=== PATIENT | female | born 1935 | race Caucasian/White ===

== ENCOUNTER 2017-06-04 14:10 | Inpatient (IN) | payer MEDICARE, BC ==
[~2017-06-04] VITALS: Ht 170.2 cm; Wt 72.4 kg
[~2017-06-04 14:10] MED LIST: ALLO100T15 PO; ALPR-623 PO; APIX2.5T PO; ATOR20TA PO; CARV-50 PO; CHOL200016 PO; CLON1PAT15 TP; DOXE10CA2 PO; ENOX80SY7 SQ; EPOE200015 SQ; FURO40TA4 PO; GABA-532 PO; HYDR-4069 PO; HYDR-565 PO; INSU100I25 SQ; LEVO100T PO; METO10TA8 PO; NIT5P TD; NITR0.4T SL; OMEP40CA37 PO; POTA-82 PO; PREVCR VG; VITC500T PO
[2017-06-04] MEDS ORDERED: aspirin 81mg tab.chew PO ONE (17:25)
[2017-06-04] MEDS ORDERED: nitroGLYCERIN 0.4mg SUBLingual tab SL PRN ×2 (17:25→21:40)
[2017-06-04 17:38] LABS: BASOPHILS % (AUTO) 0.3 % (0-1); EOSINOPHILS # (AUTO) 0.1 X10'3 (0-0.9); EOSINOPHILS % (AUTO) 1.6 % (0-6); HEMATOCRIT 40.4 % (35.0-45.0); HEMOGLOBIN 13.1 g/dl (12.0-16.0); LYMPHOCYTES # (AUTO) 1.2 X10'3 (1.1-4.8); LYMPHOCYTES % (AUTO) 14.5 % (21-51); MEAN CORPUSCULAR HEMOGLOBIN 30.4 PG (27.0-31.0); MEAN CORPUSCULAR HGB CONC 32.5 % (33.0-36.5); MEAN CORPUSCULAR VOLUME 93.6 FL (78-98); MEAN PLATELET VOLUME 7.1 FL (7.4-10.4); MONOCYTES # (AUTO) 0.6 X10'3 (0-0.9); MONOCYTES % (AUTO) 7.2 % (2-12); NEUTROPHILS # (AUTO) 6.5 X10'3 (1.8-7.7); NEUTROPHILS % (AUTO) 76.4 % (42-75); PLATELET COUNT 208 X10'3 (140-440); RED BLOOD COUNT 4.32 X10'6 (4.20-5.60); RED CELL DISTRIBUTION WIDTH 18.5 % (11.5-14.5); WHITE BLOOD COUNT 8.5 X10'3 (4.5-11.0)
[2017-06-04 18:07] LABS: ALANINE AMINOTRANSFERASE 19 U/L (12-78); ALBUMIN 3.3 G/DL (3.4-5.0); ALBUMIN/GLOBULIN RATIO 0.6 (1.1-1.5); ALKALINE PHOSPHATASE 274 IU/L (46-116); ANION GAP 12 (8-16); ASPARTATE AMINO TRANSFERASE 27 U/L (10-37); BILIRUBIN,TOTAL 1.4 MG/DL (0.1-1.0); BLOOD UREA NITROGEN 54 MG/DL (7-18); BUN/CREATININE RATIO 11.4 (6.6-38.0); CALCIUM 10.8 MG/DL (8.5-10.1); CHLORIDE 96 MMOL/L (99-107); CREATININE 4.73 MG/DL (0.40-0.90); GLUCOSE 151 MG/DL (70-104); MAGNESIUM 2.1 MG/DL (1.5-2.4); POTASSIUM 4.8 MMOL/L (3.5-5.1); SODIUM 137 MMOL/L (135-145); TOTAL CARBON DIOXIDE 28.6 MMOL/L (24-32); TOTAL PROTEIN 8.5 G/DL (6.4-8.2); eGFR 9 ML/MIN
[2017-06-04] MEDS ORDERED: morphine 4 MG/ML inj SYRINge IV STA (18:13)
[2017-06-04] MEDS ORDERED: ondansetron/PF 4mg/2ml inj IV ONE (18:45)
[2017-06-04] MEDS ORDERED: magnesium hydroxide 30ml (MOM) UD suspension PO PRN (19:45)
[2017-06-04] MEDS ORDERED: mag hydrox/Alum hydrox/simeth 30ml oral suspension PO PRN (19:45)
[2017-06-04] MEDS ORDERED: ondansetron/PF 4mg/2ml inj IV PRN (19:45)
[2017-06-04] MEDS ORDERED: acetaminophen 325mg tablet PO PRN ×2 (19:45)
[2017-06-04] MEDS: carVEDilol 12.5mg tablet PO SCH (20:36)
[2017-06-04] MEDS ORDERED: CHOLECALCIFEROL 50000 UNIT PO SCH (21:40)
[2017-06-04] MEDS ORDERED: cloNIDine 0.2 MG/24 HR patch (7 day patch) TD SCH (21:40)
[2017-06-04] MEDS ORDERED: ALPRAZolam 0.25mg tablet PO PRN (21:40)
[2017-06-04] MEDS ORDERED: HYDROcodone/acetaminophen 10/325mg tab PO PRN (21:40)
[2017-06-04 22:00] VITALS: BP 168/82
[2017-06-04] MEDS: doxepin 10mg capsule PO SCH (22:45)
[2017-06-04] MEDS: HYDROcodone/acetaminophen 5mg/325mg tablet PO PRN (22:47)
[2017-06-05] VITALS (13 sets, daily range): BP systolic 109–144; BP diastolic 45–76
[2017-06-05] MEDS ORDERED: furosemide 10 MG/1 ML 10ml inj IV SCH
[2017-06-05] MEDS ORDERED: dextrose 50%-water 50ml dispensing syringe IV PRN ×2 (00:05)
[2017-06-05] MEDS ORDERED: dextrose ORAL solution 15 GM/59 ML bottle PO PRN (00:05)
[2017-06-05] MEDS ORDERED: MESSAGE TO PHARMACY PO ONE (00:05)
[2017-06-05] MEDS ORDERED: insulin Lispro (HumaLOG) vial - multi-dose SQ SCH (00:05)
[2017-06-05] MEDS ORDERED: glucagon, human recombinant 1mg kit SUBCUT PRN (00:05)
[2017-06-05 05:59] LABS: BASOPHILS % (AUTO) 0.5 % (0-1); EOSINOPHILS # (AUTO) 0.1 X10'3 (0-0.9); HEMATOCRIT 38.9 % (35.0-45.0); HEMOGLOBIN 12.8 g/dl (12.0-16.0); LYMPHOCYTES # (AUTO) 1.3 X10'3 (1.1-4.8); LYMPHOCYTES % (AUTO) 16.8 % (21-51); MEAN CORPUSCULAR HEMOGLOBIN 30.6 PG (27.0-31.0); MEAN CORPUSCULAR HGB CONC 32.8 % (33.0-36.5); MEAN CORPUSCULAR VOLUME 93.3 FL (78-98); MEAN PLATELET VOLUME 7.5 FL (7.4-10.4); MONOCYTES # (AUTO) 0.8 X10'3 (0-0.9); MONOCYTES % (AUTO) 10.8 % (2-12); NEUTROPHILS # (AUTO) 5.5 X10'3 (1.8-7.7); NEUTROPHILS % (AUTO) 70.9 % (42-75); PLATELET COUNT 187 X10'3 (140-440); RED BLOOD COUNT 4.17 X10'6 (4.20-5.60); RED CELL DISTRIBUTION WIDTH 18.3 % (11.5-14.5); WHITE BLOOD COUNT 7.8 X10'3 (4.5-11.0)
[2017-06-05 06:09] LABS: HEMOGLOBIN A1C 5.7 % (4.5-6.2)
[2017-06-05 06:10] LABS: INR 1.3 INR; PARTIAL THROMBOPLASTIN TIME 30 SECONDS (22-32); PROTHROMBIN TIME 13.5 SECONDS (9.0-12.0)
[2017-06-05 06:17] LABS: ALANINE AMINOTRANSFERASE 18 U/L (12-78); ALBUMIN/GLOBULIN RATIO 0.6 (1.1-1.5); ALKALINE PHOSPHATASE 233 IU/L (46-116); ANION GAP 12 (8-16); ASPARTATE AMINO TRANSFERASE 26 U/L (10-37); BILIRUBIN,TOTAL 1.5 MG/DL (0.1-1.0); BLOOD UREA NITROGEN 61 MG/DL (7-18); BUN/CREATININE RATIO 12.7 (6.6-38.0); CALCIUM 10.3 MG/DL (8.5-10.1); CHLORIDE 97 MMOL/L (99-107); CREATININE 4.82 MG/DL (0.40-0.90); GLUCOSE 135 MG/DL (70-104); MAGNESIUM 2.2 MG/DL (1.5-2.4); PHOSPHORUS 5.9 MG/DL (2.3-4.5); SODIUM 136 MMOL/L (135-145); TOTAL CARBON DIOXIDE 27.5 MMOL/L (24-32); TOTAL PROTEIN 7.8 G/DL (6.4-8.2); eGFR 9 ML/MIN
[2017-06-05] MEDS: HYDROcodone/acetaminophen 5mg/325mg tablet PO PRN (07:17)
[2017-06-05] MEDS ORDERED: carVEDilol 12.5mg tablet PO SCH (08:00)
[2017-06-05] MEDS ORDERED: potassium Cl 20 mEq SR tablet PO SCH (08:00)
[2017-06-05] MEDS ORDERED: heparin 1,000unit/ml 10ml vial 10 ML IV ONE (08:00)
[2017-06-05] MEDS ORDERED: nitroGLYCERIN 0.2mg/hour patch TD SCH (08:00)
[2017-06-05] MEDS ORDERED: METOLAZONE 5 MG PO SCH (08:00)
[2017-06-05] MEDS ORDERED: non-formulary drug (Potassium Chloride 1 TAB) PO SCH (08:00)
[2017-06-05] MEDS ORDERED: non-formulary drug (Omeprazole (Prilosec) 1 CAP) PO SCH (08:00)
[2017-06-05] MEDS ORDERED: enoxaparin 80mg/0.8ml syringe SUBCUT SCH (08:00)
[2017-06-05] MEDS ORDERED: LIDOcaine 1% (10mg/ml) 2ml vial SQ ONE (08:00)
[2017-06-05] MEDS: hydrALAZINE 25 MG tablet PO SCH ×3 (08:00→21:00)
[2017-06-05] MEDS ORDERED: isosorbide mononitrate 30mg tab.SR.24H PO SCH (08:00)
[2017-06-05] MEDS: lisinopril 20mg tablet PO SCH (08:00)
[2017-06-05] MEDS: carVEDilol 12.5mg tablet PO SCH ×2 (08:00→20:31)
[2017-06-05] MEDS: apixaban 2.5mg tablet PO SCH ×2 (08:21→20:32)
[2017-06-05] MEDS: pantoprazole 40mg Tablet.DR PO SCH (08:21)
[2017-06-05] MEDS: levoTHYROXINE 100mcg tablet PO SCH (08:21)
[2017-06-05] MEDS: metolazone 2.5mg tablet PO SCH ×2 (08:22→20:33)
[2017-06-05] MEDS: ascorbic acid 500mg tablet PO SCH ×2 (08:22→20:31)
[2017-06-05] MEDS: insulin glargine (Lantus) pen - multi-dose SQ SCH ×2 (08:43→21:00)
[2017-06-05] MEDS: furosemide 40mg tablet PO SCH ×3 (08:54→22:24)
[2017-06-05] MEDS ORDERED: aminophylline inj. 0 ML IV ONE (15:03)
[2017-06-05] MEDS ORDERED: regadenoson 0.4mg/5ml syringe IV ONE ×2 (15:03→15:40)
[2017-06-05] MEDS ORDERED: HYDROcodone/acetaminophen 10/325mg tab PO PRN (20:00)
[2017-06-05] MEDS ORDERED: LIDOcaine Viscous 15ml cup MM PRN (20:15)
[2017-06-05] MEDS: atorvastatin 20mg tablet PO SCH (22:24)
[2017-06-05] MEDS: gabapentin 300mg capsule PO SCH (22:24)
[2017-06-05] MEDS: doxepin 10mg capsule PO SCH (22:25)
[2017-06-06] VITALS (7 sets, daily range): BP systolic 104–131; BP diastolic 41–57
[2017-06-06 05:27] LABS: BASOPHILS % (AUTO) 0.7 % (0-1); EOSINOPHILS # (AUTO) 0.1 X10'3 (0-0.9); EOSINOPHILS % (AUTO) 2.1 % (0-6); HEMATOCRIT 35.4 % (35.0-45.0); HEMOGLOBIN 11.6 g/dl (12.0-16.0); LYMPHOCYTES # (AUTO) 0.8 X10'3 (1.1-4.8); LYMPHOCYTES % (AUTO) 12.5 % (21-51); MEAN CORPUSCULAR HEMOGLOBIN 30.6 PG (27.0-31.0); MEAN CORPUSCULAR HGB CONC 32.9 % (33.0-36.5); MEAN CORPUSCULAR VOLUME 93.1 FL (78-98); MEAN PLATELET VOLUME 7.5 FL (7.4-10.4); MONOCYTES # (AUTO) 0.8 X10'3 (0-0.9); MONOCYTES % (AUTO) 12.7 % (2-12); NEUTROPHILS # (AUTO) 4.8 X10'3 (1.8-7.7); PLATELET COUNT 173 X10'3 (140-440); RED CELL DISTRIBUTION WIDTH 18.1 % (11.5-14.5); WHITE BLOOD COUNT 6.6 X10'3 (4.5-11.0)
[2017-06-06 05:34] LABS: INR 1.4 INR; PARTIAL THROMBOPLASTIN TIME 32 SECONDS (22-32); PROTHROMBIN TIME 14.3 SECONDS (9.0-12.0)
[2017-06-06 05:51] LABS: ALANINE AMINOTRANSFERASE 22 U/L (12-78); ALBUMIN 2.7 G/DL (3.4-5.0); ALBUMIN/GLOBULIN RATIO 0.6 (1.1-1.5); ALKALINE PHOSPHATASE 211 IU/L (46-116); ANION GAP 9 (8-16); ASPARTATE AMINO TRANSFERASE 37 U/L (10-37); BILIRUBIN,TOTAL 1.1 MG/DL (0.1-1.0); BLOOD UREA NITROGEN 45 MG/DL (7-18); BUN/CREATININE RATIO 11.7 (6.6-38.0); CALCIUM 9.3 MG/DL (8.5-10.1); CHLORIDE 96 MMOL/L (99-107); CREATININE 3.84 MG/DL (0.40-0.90); GLUCOSE 70 MG/DL (70-104); PHOSPHORUS 5.4 MG/DL (2.3-4.5); SODIUM 135 MMOL/L (135-145); TOTAL CARBON DIOXIDE 30.2 MMOL/L (24-32); eGFR 11 ML/MIN
[2017-06-06] MEDS: dextrose ORAL solution 15 GM/59 ML bottle PO PRN ×2 (07:20→07:47)
[2017-06-06] MEDS: levoTHYROXINE 100mcg tablet PO SCH (07:39)
[2017-06-06] MEDS: ascorbic acid 500mg tablet PO SCH ×2 (07:39→19:35)
[2017-06-06] MEDS: apixaban 2.5mg tablet PO SCH ×2 (07:39→19:36)
[2017-06-06] MEDS: pantoprazole 40mg Tablet.DR PO SCH (07:39)
[2017-06-06] MEDS: carVEDilol 12.5mg tablet PO SCH ×2 (07:39→19:35)
[2017-06-06] MEDS: metolazone 2.5mg tablet PO SCH ×2 (07:39→21:10)
[2017-06-06] MEDS: lisinopril 20mg tablet PO SCH (09:15)
[2017-06-06] MEDS: insulin glargine (Lantus) pen - multi-dose SQ SCH ×2 (09:15→21:00)
[2017-06-06] MEDS: hydrALAZINE 25 MG tablet PO SCH ×3 (09:15→21:06)
[2017-06-06] MEDS: furosemide 40mg tablet PO SCH ×3 (09:15→21:05)
[2017-06-06 13:27] LABS: HBSAG SCREEN Negative (Negative)
[2017-06-06] MEDS ORDERED: LIDOcaine 5% patch TP SCH (15:05)
[2017-06-06] MEDS ORDERED: cyclobenzaprine 10mg tablet PO SCH (21:00)
[2017-06-06] MEDS: gabapentin 300mg capsule PO SCH (21:05)
[2017-06-06] MEDS: doxepin 10mg capsule PO SCH (21:06)
[2017-06-06] MEDS: atorvastatin 20mg tablet PO SCH (21:06)
[2017-06-07 02:00] VITALS: BP 110/44
[2017-06-07 06:00] VITALS: BP 88/32
[2017-06-07 06:08] LABS: BASOPHILS % (AUTO) 0.8 % (0-1); EOSINOPHILS # (AUTO) 0.2 X10'3 (0-0.9); EOSINOPHILS % (AUTO) 3.2 % (0-6); HEMATOCRIT 33.6 % (35.0-45.0); HEMOGLOBIN 11.1 g/dl (12.0-16.0); LYMPHOCYTES # (AUTO) 0.9 X10'3 (1.1-4.8); LYMPHOCYTES % (AUTO) 16.2 % (21-51); MEAN CORPUSCULAR HEMOGLOBIN 30.4 PG (27.0-31.0); MEAN CORPUSCULAR VOLUME 92.1 FL (78-98); MEAN PLATELET VOLUME 7.5 FL (7.4-10.4); MONOCYTES # (AUTO) 0.8 X10'3 (0-0.9); MONOCYTES % (AUTO) 15.7 % (2-12); NEUTROPHILS # (AUTO) 3.4 X10'3 (1.8-7.7); NEUTROPHILS % (AUTO) 64.1 % (42-75); PLATELET COUNT 157 X10'3 (140-440); RED BLOOD COUNT 3.65 X10'6 (4.20-5.60); RED CELL DISTRIBUTION WIDTH 18.3 % (11.5-14.5); WHITE BLOOD COUNT 5.3 X10'3 (4.5-11.0)
[2017-06-07 06:14] LABS: INR 1.4 INR; PARTIAL THROMBOPLASTIN TIME 35 SECONDS (22-32); PROTHROMBIN TIME 14.5 SECONDS (9.0-12.0)
[2017-06-07 06:22] LABS: ALANINE AMINOTRANSFERASE 21 U/L (12-78); ALBUMIN 2.5 G/DL (3.4-5.0); ALBUMIN/GLOBULIN RATIO 0.6 (1.1-1.5); ALKALINE PHOSPHATASE 201 IU/L (46-116); ANION GAP 9 (8-16); ASPARTATE AMINO TRANSFERASE 31 U/L (10-37); BLOOD UREA NITROGEN 60 MG/DL (7-18); CHLORIDE 93 MMOL/L (99-107); CREATININE 4.61 MG/DL (0.40-0.90); GLUCOSE 85 MG/DL (70-104); PHOSPHORUS 4.8 MG/DL (2.3-4.5); POTASSIUM 4.1 MMOL/L (3.5-5.1); SODIUM 130 MMOL/L (135-145); TOTAL PROTEIN 6.8 G/DL (6.4-8.2); eGFR 9 ML/MIN
[2017-06-07] MEDS: insulin glargine (Lantus) pen - multi-dose SQ SCH (08:00)
[2017-06-07] MEDS: carVEDilol 12.5mg tablet PO SCH (08:00)
[2017-06-07] MEDS: hydrALAZINE 25 MG tablet PO SCH ×2 (08:00→13:00)
[2017-06-07] MEDS: furosemide 40mg tablet PO SCH ×2 (08:00→13:00)
[2017-06-07] MEDS ORDERED: heparin 1,000 units/ml 10ml inj IV ONE (08:00)
[2017-06-07] MEDS ORDERED: LIDOcaine 1% (10mg/ml) 2ml vial SQ ONE (08:00)
[2017-06-07] MEDS: metolazone 2.5mg tablet PO SCH (08:00)
[2017-06-07] MEDS: lisinopril 20mg tablet PO SCH (08:00)
[2017-06-07] MEDS: ascorbic acid 500mg tablet PO SCH (09:13)
[2017-06-07] MEDS: gabapentin 300mg capsule PO SCH (09:13)
[2017-06-07] MEDS: apixaban 2.5mg tablet PO SCH (09:13)
[2017-06-07] MEDS: pantoprazole 40mg Tablet.DR PO SCH (09:13)
[2017-06-07] MEDS: levoTHYROXINE 100mcg tablet PO SCH (09:14)
[2017-06-07 09:26] VITALS: BP 123/52
[2017-06-07 15:00] VITALS: BP 148/68
[2017-06-07 19:00] VITALS: BP 112/57
== END 2017-06-07 19:30 | disposition short-term general hospital (02) | DRG 291 ==
LOC: ER 14:10 → ED HOLD 20:36 → PCU 3S 21:45
PROVIDERS: ADMIT Internal Medicine Critical Care Medicine; ATTEND Internal Medicine Critical Care Medicine
PROC: 4A02XM4 Measurement of Cardiac Total Activity, External Approach (ICD-10-PCS; principal; 2017-06-05)
PROC: 3E073KZ Introduction of Other Diagnostic Substance into Coronary Artery, Percutaneous Approach (ICD-10-PCS; 2017-06-05)
PROC: 5A1D70Z Performance of Urinary Filtration, Intermittent, Less than 6 Hours Per Day (ICD-10-PCS; 2017-06-05)
PROC: 5A1D70Z Performance of Urinary Filtration, Intermittent, Less than 6 Hours Per Day (ICD-10-PCS; 2017-06-07)
DX: I13.2 Hypertensive heart and chronic kidney disease with heart failure and with stage 5 chronic kidney disease, or end stage renal disease (principal); N18.6 End stage renal disease; G92 Toxic encephalopathy; E11.22 Type 2 diabetes mellitus with diabetic chronic kidney disease; I48.2 Chronic atrial fibrillation; G89.29 Other chronic pain; M54.9 Dorsalgia, unspecified; I50.9 Heart failure, unspecified; E66.9 Obesity, unspecified; I25.10 Atherosclerotic heart disease of native coronary artery without angina pectoris; K21.9 Gastro-esophageal reflux disease without esophagitis; M48.061 Spinal stenosis, lumbar region without neurogenic claudication; T48.1X5A Adverse effect of skeletal muscle relaxants [neuromuscular blocking agents], initial encounter; Z90.710 Acquired absence of both cervix and uterus; I25.2 Old myocardial infarction; Z99.2 Dependence on renal dialysis; Z79.4 Long term (current) use of insulin; Z79.01 Long term (current) use of anticoagulants; Z79.899 Other long term (current) drug therapy; Z87.891 Personal history of nicotine dependence; Z68.25 Body mass index [BMI] 25.0-25.9, adult; Y92.238 Other place in hospital as the place of occurrence of the external cause
CPT/HCPCS: 36415; 71045; 72131; 78452; 80053; 82948; 83036; 83735; 83880; 84100; 84443; 84484; 85025; 85610; 85730; 87340; 93005; 93017; 93306; A6402; A6449; A9500; G0257; J0280; J1644; J1650; J1815; J1940; J2270; J2405; J3490; J7030

== ENCOUNTER 2017-06-23 13:37 | Inpatient (IN) | payer MEDICARE, BC ==
[~2017-06-23] VITALS: Ht 170.2 cm; Wt 76.6 kg
[2017-06-23 14:23] LABS: BASOPHILS % (AUTO) 0.6 % (0-1); EOSINOPHILS # (AUTO) 0.3 X10'3 (0-0.9); EOSINOPHILS % (AUTO) 4.2 % (0-6); HEMATOCRIT 36.1 % (35.0-45.0); HEMOGLOBIN 11.8 g/dl (12.0-16.0); LYMPHOCYTES % (AUTO) 14.4 % (21-51); MEAN CORPUSCULAR HEMOGLOBIN 30.1 PG (27.0-31.0); MEAN CORPUSCULAR HGB CONC 32.6 % (33.0-36.5); MEAN CORPUSCULAR VOLUME 92.4 FL (78-98); MEAN PLATELET VOLUME 7.2 FL (7.4-10.4); MONOCYTES % (AUTO) 13.9 % (2-12); NEUTROPHILS # (AUTO) 4.6 X10'3 (1.8-7.7); NEUTROPHILS % (AUTO) 66.9 % (42-75); PLATELET COUNT 175 X10'3 (140-440); RED BLOOD COUNT 3.91 X10'6 (4.20-5.60); RED CELL DISTRIBUTION WIDTH 18.7 % (11.5-14.5); WHITE BLOOD COUNT 6.9 X10'3 (4.5-11.0)
[2017-06-23 14:43] LABS: INR 1.3 INR; PARTIAL THROMBOPLASTIN TIME 33 SECONDS (22-32); PROTHROMBIN TIME 13.3 SECONDS (9.0-12.0)
[2017-06-23] MEDS ORDERED: cefepime 1GM/NS ADD-VANTAGE 100 ML IV STA (15:29)
[2017-06-23] MEDS ORDERED: vancomycin/NS 1 GM ADD-VANTAGE 250 ML IV ONE (15:30)
[2017-06-23 15:57] LABS: ALANINE AMINOTRANSFERASE 17 U/L (12-78); ALBUMIN 2.7 G/DL (3.4-5.0); ALBUMIN/GLOBULIN RATIO 0.6 (1.1-1.5); ALKALINE PHOSPHATASE 207 IU/L (46-116); ANION GAP 10 (8-16); ASPARTATE AMINO TRANSFERASE 18 U/L (10-37); BLOOD UREA NITROGEN 13 MG/DL (7-18); BUN/CREATININE RATIO 5.3 (6.6-38.0); CALCIUM 9.5 MG/DL (8.5-10.1); CHLORIDE 100 MMOL/L (99-107); CREATINE KINASE 14 U/L (26-192); CREATININE 2.43 MG/DL (0.40-0.90); ETHANOL < 0.010 GM/DL (0.0-0.010); GLUCOSE 84 MG/DL (70-104); PHOSPHORUS 2.4 MG/DL (2.3-4.5); SODIUM 141 MMOL/L (135-145); TOTAL CARBON DIOXIDE 31.5 MMOL/L (24-32); TOTAL PROTEIN 7.3 G/DL (6.4-8.2); eGFR 19 ML/MIN
[2017-06-23] MEDS ORDERED: cefepime inj. 1 GM in dextrose 5%-water 50ml 100 ML IV STA (16:04)
[2017-06-23 16:09] LABS: ACETAMINOPHEN < 2.0 UG/ML (10-30); POTASSIUM 2.9 MMOL/L (3.5-5.1)
[2017-06-23] MEDS ORDERED: CEFE1VIA11 IV (16:20)
[2017-06-23] MEDS ORDERED: APIX2.5T PO (16:20)
[2017-06-23] MEDS ORDERED: CIPR10DR RIGHT EAR (16:20)
[2017-06-23] MEDS ORDERED: DOCU-28 PO (16:20)
[2017-06-23] MEDS ORDERED: IPRA4AER IH (16:20)
[2017-06-23] MEDS ORDERED: GABA-532 PO (16:20)
[2017-06-23] MEDS ORDERED: BUME2TAB3 PO (16:20)
[2017-06-23] MEDS ORDERED: LEVO100T9 PO (16:20)
[2017-06-23] MEDS ORDERED: LIDO700A32 TOP (16:20)
[2017-06-23] MEDS ORDERED: CARV-49 PO (16:20)
[2017-06-23] MEDS ORDERED: POLY17PO10 PO (16:20)
[2017-06-23] MEDS ORDERED: OMEP20CA10 PO (16:28)
[2017-06-23] MEDS ORDERED: PRAV80TA3 PO (16:28)
[2017-06-23] MEDS ORDERED: TRAM50TA2 PO (16:28)
[2017-06-23] MEDS ORDERED: ACET-2119 PO (16:28)
[2017-06-23] MEDS ORDERED: potassium Cl 20 mEq/100mL bag IV ONE (16:35)
[2017-06-23] MEDS ORDERED: bisacodyl 10mg suppository rectal RC PRN (16:40)
[2017-06-23] MEDS ORDERED: acetaminophen 325mg tablet PO PRN ×2 (16:40)
[2017-06-23] MEDS ORDERED: acetaminophen 650mg rectal suppository RC PRN (16:40)
[2017-06-23] MEDS ORDERED: ondansetron/PF 4mg/2ml inj IV PRN (16:40)
[2017-06-23] MEDS ORDERED: ALLO100T PO (16:43)
[2017-06-23] MEDS ORDERED: ALPR-623 PO (16:43)
[2017-06-23] MEDS ORDERED: VIT1TABL48 PO (16:46)
[2017-06-23] MEDS ORDERED: vancomycin inj 500 MG in normal saline 100ml IV soln 100 ML IV ONE (17:20)
[2017-06-23] MEDS ORDERED: ipratropium/albuterol 3ml nebule IH PRN (17:25)
[2017-06-23 19:15] VITALS: BP 149/53
[2017-06-23] MEDS: carvedilol 6.25mg tablet PO SCH (20:00)
[2017-06-23] MEDS: lactulose 20gm/30ml cup PO SCH (20:00)
[2017-06-23] MEDS: apixaban 2.5mg tablet PO SCH (20:00)
[2017-06-23] MEDS ORDERED: gabapentin 300mg capsule PO SCH (21:00)
[2017-06-23] MEDS: pravastatin 40mg tablet PO SCH (21:00)
[2017-06-23] MEDS: docusate sod 100mg capsule PO SCH (21:00)
[2017-06-23 22:00] VITALS: BP 116/47
[2017-06-23 23:00] VITALS: BP 116/47
[2017-06-24 00:32] LABS: POTASSIUM 3.6 MMOL/L (3.5-5.1)
[2017-06-24 03:00] VITALS: BP 132/57
[2017-06-24 06:00] VITALS: BP 128/56
[2017-06-24 06:19] LABS: BASOPHILS % (AUTO) 1.1 % (0-1); EOSINOPHILS % (AUTO) 4.3 % (0-6); HEMATOCRIT 35.4 % (35.0-45.0); HEMOGLOBIN 11.6 g/dl (12.0-16.0); LYMPHOCYTES # (AUTO) 1.1 X10'3 (1.1-4.8); LYMPHOCYTES % (AUTO) 18.7 % (21-51); MEAN CORPUSCULAR HEMOGLOBIN 30.3 PG (27.0-31.0); MEAN CORPUSCULAR HGB CONC 32.9 % (33.0-36.5); MEAN CORPUSCULAR VOLUME 92.1 FL (78-98); MEAN PLATELET VOLUME 7.5 FL (7.4-10.4); MONOCYTES # (AUTO) 0.9 X10'3 (0-0.9); MONOCYTES % (AUTO) 15.7 % (2-12); NEUTROPHILS # (AUTO) 3.6 X10'3 (1.8-7.7); NEUTROPHILS % (AUTO) 60.2 % (42-75); PLATELET COUNT 162 X10'3 (140-440); RED BLOOD COUNT 3.84 X10'6 (4.20-5.60); RED CELL DISTRIBUTION WIDTH 18.8 % (11.5-14.5); WHITE BLOOD COUNT 5.9 X10'3 (4.5-11.0)
[2017-06-24 06:20] LABS: BASOPHILS # (AUTO) 0.1 X10'3 (0-0.2); EOSINOPHILS # (AUTO) 0.3 X10'3 (0-0.9)
[2017-06-24 06:30] LABS: INR 1.3 INR; PARTIAL THROMBOPLASTIN TIME 32 SECONDS (22-32); PROTHROMBIN TIME 13.2 SECONDS (9.0-12.0)
[2017-06-24 07:15] LABS: ALANINE AMINOTRANSFERASE 12 U/L (12-78); ALBUMIN 2.5 G/DL (3.4-5.0); ALBUMIN/GLOBULIN RATIO 0.6 (1.1-1.5); ALKALINE PHOSPHATASE 194 IU/L (46-116); ANION GAP 8 (8-16); ASPARTATE AMINO TRANSFERASE 17 U/L (10-37); BLOOD UREA NITROGEN 17 MG/DL (7-18); BUN/CREATININE RATIO 5.2 (6.6-38.0); CALCIUM 9.7 MG/DL (8.5-10.1); CHLORIDE 101 MMOL/L (99-107); CREATININE 3.25 MG/DL (0.40-0.90); GLUCOSE 78 MG/DL (70-104); PHOSPHORUS 3.1 MG/DL (2.3-4.5); POTASSIUM 3.5 MMOL/L (3.5-5.1); SODIUM 141 MMOL/L (135-145); TOTAL CARBON DIOXIDE 31.6 MMOL/L (24-32); eGFR 14 ML/MIN
[2017-06-24] MEDS ORDERED: dextrose 50%-water 50ml dispensing syringe IV ONE (07:45)
[2017-06-24 07:53] LABS: ANISOCYTOSIS 2+; PLATELET ESTIMATE NORMAL; POLYCHROMASIA 1+; STOMATOCYTES 1+; TARGET CELLS FEW
[2017-06-24] MEDS: bumetanide 1mg tablet PO SCH (08:00)
[2017-06-24] MEDS ORDERED: cefepime 1GM/NS ADD-VANTAGE 100 ML IV SCH (08:00)
[2017-06-24] MEDS: folic acid/vitamin B complex w/vitamin C 0.8mg tablet PO SCH (08:00)
[2017-06-24] MEDS: lactulose 20gm/30ml cup PO SCH (08:00)
[2017-06-24] MEDS: Cipro HC otic suspension 10ML bottle RIGHT EAR SCH ×3 (08:00→16:00)
[2017-06-24] MEDS: apixaban 2.5mg tablet PO SCH ×2 (08:00→20:00)
[2017-06-24] MEDS: carvedilol 6.25mg tablet PO SCH ×2 (08:00→20:00)
[2017-06-24] MEDS: allopurinol 100mg tablet PO SCH (08:00)
[2017-06-24] MEDS: pantoprazole 40mg Tablet.DR PO SCH (08:00)
[2017-06-24] MEDS: levoTHYROXINE 100mcg tablet PO SCH (08:00)
[2017-06-24 11:00] VITALS: BP 149/58
[2017-06-24] MEDS ORDERED: vancomycin/NS 1 GM ADD-VANTAGE 250 ML IV PRN (11:50)
[2017-06-24 15:00] VITALS: BP 147/56
[2017-06-24] MEDS ORDERED: vancomycin/NS 1 GM ADD-VANTAGE 250 ML IV SCH (18:00)
[2017-06-24 19:00] VITALS: BP 160/49
[2017-06-24] MEDS: pravastatin 40mg tablet PO SCH (21:00)
[2017-06-24] MEDS: docusate sod 100mg capsule PO SCH (21:00)
[2017-06-24 22:00] VITALS: BP 152/54
[2017-06-25] VITALS (7 sets, daily range): BP systolic 128–170; BP diastolic 52–70
[2017-06-25] MEDS: lactulose 20gm/30ml cup PO SCH ×2 (00:12→07:12)
[2017-06-25] MEDS: VANCOMYCIN LEVEL IV SCH (03:00)
[2017-06-25 05:09] LABS: BASOPHILS % (AUTO) 0.4 % (0-1); EOSINOPHILS # (AUTO) 0.2 X10'3 (0-0.9); EOSINOPHILS % (AUTO) 2.5 % (0-6); HEMATOCRIT 35.5 % (35.0-45.0); HEMOGLOBIN 11.7 g/dl (12.0-16.0); LYMPHOCYTES # (AUTO) 1.1 X10'3 (1.1-4.8); LYMPHOCYTES % (AUTO) 15.4 % (21-51); MEAN CORPUSCULAR HEMOGLOBIN 30.3 PG (27.0-31.0); MEAN CORPUSCULAR HGB CONC 32.9 % (33.0-36.5); MEAN CORPUSCULAR VOLUME 92.1 FL (78-98); MEAN PLATELET VOLUME 7.7 FL (7.4-10.4); MONOCYTES # (AUTO) 1.1 X10'3 (0-0.9); MONOCYTES % (AUTO) 15.8 % (2-12); NEUTROPHILS # (AUTO) 4.6 X10'3 (1.8-7.7); NEUTROPHILS % (AUTO) 65.9 % (42-75); PLATELET COUNT 161 X10'3 (140-440); RED BLOOD COUNT 3.85 X10'6 (4.20-5.60); RED CELL DISTRIBUTION WIDTH 19.1 % (11.5-14.5)
[2017-06-25 05:27] LABS: INR 1.3 INR; PARTIAL THROMBOPLASTIN TIME 29 SECONDS (22-32); PROTHROMBIN TIME 13.6 SECONDS (9.0-12.0)
[2017-06-25 07:07] LABS: ALANINE AMINOTRANSFERASE 12 U/L (12-78); ALBUMIN 2.6 G/DL (3.4-5.0); ALBUMIN/GLOBULIN RATIO 0.6 (1.1-1.5); ALKALINE PHOSPHATASE 227 IU/L (46-116); ANION GAP 11 (8-16); ASPARTATE AMINO TRANSFERASE 18 U/L (10-37); BILIRUBIN,TOTAL 1.2 MG/DL (0.1-1.0); BLOOD UREA NITROGEN 25 MG/DL (7-18); BUN/CREATININE RATIO 6.1 (6.6-38.0); CALCIUM 10.1 MG/DL (8.5-10.1); CHLORIDE 100 MMOL/L (99-107); CREATININE 4.12 MG/DL (0.40-0.90); GLUCOSE 169 MG/DL (70-104); MAGNESIUM 2.2 MG/DL (1.5-2.4); PHOSPHORUS 3.4 MG/DL (2.3-4.5); POTASSIUM 3.3 MMOL/L (3.5-5.1); SODIUM 139 MMOL/L (135-145); TOTAL CARBON DIOXIDE 28.2 MMOL/L (24-32); TOTAL PROTEIN 7.2 G/DL (6.4-8.2); VANCOMYCIN,RANDOM 20.5 UG/ML; eGFR 10 ML/MIN
[2017-06-25] MEDS: cefepime inj. 1 GM in dextrose 5%-water 50ml 50 ML IV SCH (07:09)
[2017-06-25] MEDS: bumetanide 1mg tablet PO SCH (07:12)
[2017-06-25] MEDS: levoTHYROXINE 100mcg tablet PO SCH (07:13)
[2017-06-25] MEDS: carvedilol 6.25mg tablet PO SCH ×2 (07:13→20:31)
[2017-06-25] MEDS: Cipro HC otic suspension 10ML bottle RIGHT EAR SCH ×3 (07:13→16:00)
[2017-06-25] MEDS: allopurinol 100mg tablet PO SCH (07:13)
[2017-06-25] MEDS: apixaban 2.5mg tablet PO SCH ×2 (07:13→20:31)
[2017-06-25] MEDS: pantoprazole 40mg Tablet.DR PO SCH (07:13)
[2017-06-25] MEDS: docusate sod 100mg capsule PO SCH (07:13)
[2017-06-25] MEDS: folic acid/vitamin B complex w/vitamin C 0.8mg tablet PO SCH (07:13)
[2017-06-25] MEDS ORDERED: dextrose 50%-water 50ml dispensing syringe IV PRN ×2 (08:40)
[2017-06-25] MEDS ORDERED: dextrose ORAL solution 15 GM/59 ML bottle PO PRN ×2 (08:40)
[2017-06-25] MEDS ORDERED: MESSAGE TO PHARMACY PO ONE (08:40)
[2017-06-25] MEDS ORDERED: glucagon, human recombinant 1mg kit SUBCUT PRN (08:40)
[2017-06-25 13:02] LABS: PREALBUMIN 13.3 MG/DL (19-36)
[2017-06-25] MEDS: insulin regular, human vial - multi-dose SQ SCH ×2 (14:26→21:10)
[2017-06-25] MEDS: pravastatin 40mg tablet PO SCH (20:31)
[2017-06-25] MEDS: lactobacillus rhamnosus 10,000 MMU CELLS/CAPSULE PO SCH (20:31)
[2017-06-26] MEDS: VANCOMYCIN LEVEL IV SCH (00:33)
[2017-06-26] MEDS: insulin regular, human vial - multi-dose SQ SCH (01:50)
[2017-06-26] MEDS: acetaminophen 325mg tablet PO PRN ×2 (04:29→21:55)
[2017-06-26 05:23] LABS: BASOPHILS % (AUTO) 0.4 % (0-1); EOSINOPHILS # (AUTO) 0.3 X10'3 (0-0.9); EOSINOPHILS % (AUTO) 3.5 % (0-6); HEMATOCRIT 33.1 % (35.0-45.0); HEMOGLOBIN 10.9 g/dl (12.0-16.0); LYMPHOCYTES # (AUTO) 1.2 X10'3 (1.1-4.8); LYMPHOCYTES % (AUTO) 14.5 % (21-51); MEAN CORPUSCULAR HEMOGLOBIN 30.3 PG (27.0-31.0); MEAN CORPUSCULAR VOLUME 91.7 FL (78-98); MEAN PLATELET VOLUME 7.5 FL (7.4-10.4); MONOCYTES % (AUTO) 12.7 % (2-12); NEUTROPHILS # (AUTO) 5.5 X10'3 (1.8-7.7); NEUTROPHILS % (AUTO) 68.9 % (42-75); PLATELET COUNT 149 X10'3 (140-440); RED BLOOD COUNT 3.61 X10'6 (4.20-5.60); RED CELL DISTRIBUTION WIDTH 18.6 % (11.5-14.5); WHITE BLOOD COUNT 7.9 X10'3 (4.5-11.0)
[2017-06-26 05:38] LABS: INR 1.3 INR; PARTIAL THROMBOPLASTIN TIME 30 SECONDS (22-32); PROTHROMBIN TIME 13.3 SECONDS (9.0-12.0)
[2017-06-26 05:42] LABS: ALANINE AMINOTRANSFERASE 13 U/L (12-78); ALBUMIN 2.4 G/DL (3.4-5.0); ALBUMIN/GLOBULIN RATIO 0.5 (1.1-1.5); ALKALINE PHOSPHATASE 240 IU/L (46-116); ANION GAP 7 (8-16); ASPARTATE AMINO TRANSFERASE 17 U/L (10-37); BILIRUBIN,TOTAL 0.8 MG/DL (0.1-1.0); BLOOD UREA NITROGEN 40 MG/DL (7-18); BUN/CREATININE RATIO 8.5 (6.6-38.0); CHLORIDE 102 MMOL/L (99-107); CREATININE 4.72 MG/DL (0.40-0.90); GLUCOSE 118 MG/DL (70-104); SODIUM 141 MMOL/L (135-145); TOTAL CARBON DIOXIDE 32.2 MMOL/L (24-32); TOTAL PROTEIN 6.8 G/DL (6.4-8.2); VANCOMYCIN,RANDOM 17.4 UG/ML; eGFR 9 ML/MIN
[2017-06-26 06:03] LABS: POTASSIUM 2.9 MMOL/L (3.5-5.1)
[2017-06-26] MEDS ORDERED: potassium Cl oral solution 20 MEQ/15 ML PO ONE (07:30)
[2017-06-26] MEDS: gabapentin 100mg capsule PO SCH (07:59)
[2017-06-26] MEDS: folic acid/vitamin B complex w/vitamin C 0.8mg tablet PO SCH (08:00)
[2017-06-26] MEDS: cefepime inj. 1 GM in dextrose 5%-water 50ml 50 ML IV SCH (08:00)
[2017-06-26] MEDS: lactobacillus rhamnosus 10,000 MMU CELLS/CAPSULE PO SCH ×2 (08:00→21:39)
[2017-06-26] MEDS: carvedilol 6.25mg tablet PO SCH ×2 (08:00→21:39)
[2017-06-26] MEDS: pantoprazole 40mg Tablet.DR PO SCH (08:00)
[2017-06-26] MEDS: allopurinol 100mg tablet PO SCH (08:00)
[2017-06-26] MEDS: apixaban 2.5mg tablet PO SCH ×2 (08:00→21:39)
[2017-06-26] MEDS ORDERED: albumin (human) 25% 100ml IV 100 ML IV PRN (08:00)
[2017-06-26] MEDS ORDERED: heparin 1,000 units/ml 10ml inj IV ONE (08:00)
[2017-06-26] MEDS: levoTHYROXINE 100mcg tablet PO SCH (08:00)
[2017-06-26] MEDS: bumetanide 1mg tablet PO SCH (08:01)
[2017-06-26] MEDS: Cipro HC otic suspension 10ML bottle RIGHT EAR SCH ×3 (08:01→16:14)
[2017-06-26] MEDS ORDERED: potassium Cl 20 mEq/100mL bag IV ONE (12:20)
[2017-06-26] MEDS ORDERED: POTASSIUM CL IV ONE (12:30)
[2017-06-26] MEDS ORDERED: NORMAL SALINE IV ONE (12:30)
[2017-06-26] MEDS: LACTOSE-FREE FOOD 237ML (BOOST) PO SCH ×2 (13:00→18:00)
[2017-06-26] MEDS ORDERED: LIDOcaine 1% (10mg/ml) 2ml vial SQ ONE (13:05)
[2017-06-26 18:30] VITALS: BP 150/51
[2017-06-26 19:35] LABS: HEMATOCRIT 34.8 % (35.0-45.0); HEMOGLOBIN 11.4 g/dl (12.0-16.0); MEAN CORPUSCULAR HEMOGLOBIN 30.3 PG (27.0-31.0); MEAN CORPUSCULAR HGB CONC 32.7 % (33.0-36.5); MEAN CORPUSCULAR VOLUME 92.6 FL (78-98); MEAN PLATELET VOLUME 7.3 FL (7.4-10.4); PLATELET COUNT 142 X10'3 (140-440); RED BLOOD COUNT 3.75 X10'6 (4.20-5.60); RED CELL DISTRIBUTION WIDTH 18.8 % (11.5-14.5); WHITE BLOOD COUNT 6.8 X10'3 (4.5-11.0)
[2017-06-26] MEDS: docusate sod 100mg capsule PO SCH (21:00)
[2017-06-26] MEDS: pravastatin 40mg tablet PO SCH (21:39)
[2017-06-26 21:44] VITALS: BP 127/45
[2017-06-26 22:00] VITALS: BP 125/47
[2017-06-27] MEDS: VANCOMYCIN LEVEL IV SCH (03:00)
[2017-06-27] MEDS: acetaminophen 325mg tablet PO PRN (04:33)
[2017-06-27 05:27] LABS: INR 1.3 INR; PROTHROMBIN TIME 13.4 SECONDS (9.0-12.0)
[2017-06-27 05:33] LABS: BASOPHILS % (AUTO) 0.3 % (0-1); EOSINOPHILS # (AUTO) 0.3 X10'3 (0-0.9); EOSINOPHILS % (AUTO) 4.8 % (0-6); HEMATOCRIT 34.4 % (35.0-45.0); HEMOGLOBIN 10.9 g/dl (12.0-16.0); LYMPHOCYTES % (AUTO) 15.4 % (21-51); MEAN CORPUSCULAR HEMOGLOBIN 29.6 PG (27.0-31.0); MEAN CORPUSCULAR HGB CONC 31.6 % (33.0-36.5); MEAN CORPUSCULAR VOLUME 93.6 FL (78-98); MEAN PLATELET VOLUME 7.6 FL (7.4-10.4); MONOCYTES # (AUTO) 0.9 X10'3 (0-0.9); NEUTROPHILS # (AUTO) 4.2 X10'3 (1.8-7.7); NEUTROPHILS % (AUTO) 65.5 % (42-75); PLATELET COUNT 148 X10'3 (140-440); RED BLOOD COUNT 3.67 X10'6 (4.20-5.60); RED CELL DISTRIBUTION WIDTH 18.8 % (11.5-14.5); WHITE BLOOD COUNT 6.3 X10'3 (4.5-11.0)
[2017-06-27 06:00] VITALS: BP 118/61
[2017-06-27 06:36] LABS: ALANINE AMINOTRANSFERASE 13 U/L (12-78); ALBUMIN 2.5 G/DL (3.4-5.0); ALBUMIN/GLOBULIN RATIO 0.6 (1.1-1.5); ALKALINE PHOSPHATASE 240 IU/L (46-116); ANION GAP 7 (8-16); ASPARTATE AMINO TRANSFERASE 21 U/L (10-37); BILIRUBIN,TOTAL 0.8 MG/DL (0.1-1.0); BLOOD UREA NITROGEN 26 MG/DL (7-18); BUN/CREATININE RATIO 8.2 (6.6-38.0); CALCIUM 9.6 MG/DL (8.5-10.1); CHLORIDE 100 MMOL/L (99-107); CREATININE 3.18 MG/DL (0.40-0.90); GLUCOSE 178 MG/DL (70-104); MAGNESIUM 2.1 MG/DL (1.5-2.4); PHOSPHORUS 2.5 MG/DL (2.3-4.5); POTASSIUM 3.7 MMOL/L (3.5-5.1); SODIUM 138 MMOL/L (135-145); TOTAL CARBON DIOXIDE 30.8 MMOL/L (24-32); TOTAL PROTEIN 6.9 G/DL (6.4-8.2); VANCOMYCIN,RANDOM 13.7 UG/ML; eGFR 14 ML/MIN
[2017-06-27] MEDS ORDERED: vancomycin/NS 1 GM ADD-VANTAGE 250 ML IV ONE (07:05)
[2017-06-27] MEDS: LACTOSE-FREE FOOD 237ML (BOOST) PO SCH ×3 (07:38→18:00)
[2017-06-27] MEDS: cefepime inj. 1 GM in dextrose 5%-water 50ml 50 ML IV SCH (08:02)
[2017-06-27] MEDS: bumetanide 1mg tablet PO SCH (08:13)
[2017-06-27] MEDS: carvedilol 6.25mg tablet PO SCH ×2 (08:13→20:45)
[2017-06-27] MEDS: apixaban 2.5mg tablet PO SCH (08:15)
[2017-06-27] MEDS: pantoprazole 40mg Tablet.DR PO SCH (08:15)
[2017-06-27] MEDS: folic acid/vitamin B complex w/vitamin C 0.8mg tablet PO SCH (08:15)
[2017-06-27] MEDS: lactobacillus rhamnosus 10,000 MMU CELLS/CAPSULE PO SCH ×2 (08:15→20:45)
[2017-06-27] MEDS: gabapentin 100mg capsule PO SCH (08:15)
[2017-06-27] MEDS: levoTHYROXINE 100mcg tablet PO SCH (08:15)
[2017-06-27] MEDS: allopurinol 100mg tablet PO SCH (08:15)
[2017-06-27] MEDS: Cipro HC otic suspension 10ML bottle RIGHT EAR SCH ×3 (08:19→15:49)
[2017-06-27 10:00] VITALS: BP 149/55
[2017-06-27 18:00] VITALS: BP 164/58
[2017-06-27] MEDS: pravastatin 40mg tablet PO SCH (20:45)
[2017-06-27] MEDS: docusate sod 100mg capsule PO SCH (21:00)
[2017-06-27 22:00] VITALS: BP 137/59
[2017-06-28] VITALS (8 sets, daily range): BP systolic 119–149; BP diastolic 45–68
[2017-06-28] MEDS: VANCOMYCIN LEVEL IV SCH (03:00)
[2017-06-28 05:48] LABS: INR 1.3 INR
[2017-06-28 05:49] LABS: BASOPHILS % (AUTO) 0.3 % (0-1); EOSINOPHILS # (AUTO) 0.4 X10'3 (0-0.9); EOSINOPHILS % (AUTO) 5.5 % (0-6); HEMATOCRIT 33.5 % (35.0-45.0); HEMOGLOBIN 10.6 g/dl (12.0-16.0); LYMPHOCYTES # (AUTO) 1.1 X10'3 (1.1-4.8); LYMPHOCYTES % (AUTO) 14.4 % (21-51); MEAN CORPUSCULAR HGB CONC 31.8 % (33.0-36.5); MEAN CORPUSCULAR VOLUME 94.4 FL (78-98); MEAN PLATELET VOLUME 7.8 FL (7.4-10.4); NEUTROPHILS # (AUTO) 5.1 X10'3 (1.8-7.7); NEUTROPHILS % (AUTO) 66.8 % (42-75); PLATELET COUNT 137 X10'3 (140-440); RED BLOOD COUNT 3.55 X10'6 (4.20-5.60); WHITE BLOOD COUNT 7.6 X10'3 (4.5-11.0)
[2017-06-28 05:56] LABS: ALANINE AMINOTRANSFERASE 13 U/L (12-78); ALBUMIN 2.6 G/DL (3.4-5.0); ALBUMIN/GLOBULIN RATIO 0.6 (1.1-1.5); ALKALINE PHOSPHATASE 223 IU/L (46-116); ANION GAP 9 (8-16); ASPARTATE AMINO TRANSFERASE 18 U/L (10-37); BILIRUBIN,TOTAL 0.8 MG/DL (0.1-1.0); BLOOD UREA NITROGEN 42 MG/DL (7-18); BUN/CREATININE RATIO 10.6 (6.6-38.0); CALCIUM 9.9 MG/DL (8.5-10.1); CHLORIDE 99 MMOL/L (99-107); CREATININE 3.96 MG/DL (0.40-0.90); GLUCOSE 129 MG/DL (70-104); MAGNESIUM 2.1 MG/DL (1.5-2.4); PHOSPHORUS 3.1 MG/DL (2.3-4.5); POTASSIUM 3.9 MMOL/L (3.5-5.1); PREALBUMIN 14.9 MG/DL (19-36); SODIUM 138 MMOL/L (135-145); TOTAL CARBON DIOXIDE 30.5 MMOL/L (24-32); TOTAL PROTEIN 6.9 G/DL (6.4-8.2); VANCOMYCIN,RANDOM 23.1 UG/ML; eGFR 11 ML/MIN
[2017-06-28] MEDS ORDERED: LIDOcaine 1% (10mg/ml) 2ml vial SQ ONE (07:10)
[2017-06-28] MEDS ORDERED: normal saline 1000ml 1,000 ML IV SCH (07:47)
[2017-06-28] MEDS ORDERED: LIDOcaine Viscous 15ml cup PO ONE (07:50)
[2017-06-28] MEDS ORDERED: simethicone 40mg/0.6ml oral drops 30ml MC ONE (07:50)
[2017-06-28] MEDS ORDERED: MIDAZolam 5mg/5ml vial IV PRN (07:50)
[2017-06-28] MEDS ORDERED: fentaNYL/PF 50MCG/1 ML 2ML syringe IV PRN (07:50)
[2017-06-28] MEDS: levoTHYROXINE 100mcg tablet PO SCH (08:00)
[2017-06-28] MEDS: LACTOSE-FREE FOOD 237ML (BOOST) PO SCH ×3 (08:00→18:00)
[2017-06-28] MEDS: lactobacillus rhamnosus 10,000 MMU CELLS/CAPSULE PO SCH ×2 (08:00→19:22)
[2017-06-28] MEDS: pantoprazole 40mg Tablet.DR PO SCH (08:00)
[2017-06-28] MEDS: folic acid/vitamin B complex w/vitamin C 0.8mg tablet PO SCH (08:00)
[2017-06-28] MEDS: allopurinol 100mg tablet PO SCH (08:00)
[2017-06-28] MEDS ORDERED: epoetin 20,000 units/ml inj IV ONE (08:00)
[2017-06-28] MEDS: carvedilol 6.25mg tablet PO SCH ×2 (08:00→19:22)
[2017-06-28] MEDS ORDERED: albumin (human) 25% 100ml IV 100 ML IV PRN (08:00)
[2017-06-28] MEDS: bumetanide 1mg tablet PO SCH (08:00)
[2017-06-28] MEDS ORDERED: fentaNYL/PF 50MCG/1 ML 2ML syringe ONE (08:40)
[2017-06-28] MEDS ORDERED: MIDAZolam 5mg/5ml vial ONE (08:40)
[2017-06-28] MEDS ORDERED: LIDOcaine Viscous 15ml cup ONE (08:41)
[2017-06-28] MEDS: morphine 4 MG/ML inj SYRINge IV PRN ×3 (12:18→21:24)
[2017-06-28] MEDS: cefepime inj. 1 GM in dextrose 5%-water 50ml 50 ML IV SCH (12:18)
[2017-06-28] MEDS: Cipro HC otic suspension 10ML bottle RIGHT EAR SCH ×4 (12:19→23:26)
[2017-06-28] MEDS: docusate sod 100mg capsule PO SCH (19:23)
[2017-06-28] MEDS: pravastatin 40mg tablet PO SCH (19:23)
[2017-06-28] MEDS ORDERED: diphenhydrAMINE 50 mg/ml inj IV ONE (21:50)
[2017-06-28] MEDS ORDERED: diphenhydrAMINE 50 mg/ml inj IV PRN (21:50)
[2017-06-28] MEDS: ipratropium/albuterol 3ml nebule NEB SCH (22:33)
[2017-06-28] MEDS ORDERED: naloxone 0.4 mg/ml inj ONE (22:41)
[2017-06-28] MEDS ORDERED: naloxone 0.4 mg/ml inj IV ONE (22:45)
[2017-06-29 02:01] VITALS: BP 150/69
[2017-06-29] MEDS: VANCOMYCIN LEVEL IV SCH (02:26)
[2017-06-29 06:00] VITALS: BP 142/66
[2017-06-29] MEDS: LACTOSE-FREE FOOD 237ML (BOOST) PO SCH ×2 (07:33→13:00)
[2017-06-29] MEDS: ipratropium/albuterol 3ml nebule NEB SCH ×2 (08:00→11:51)
[2017-06-29] MEDS: Cipro HC otic suspension 10ML bottle RIGHT EAR SCH ×2 (08:44→15:10)
[2017-06-29] MEDS: cefepime inj. 1 GM in dextrose 5%-water 50ml 50 ML IV SCH (08:44)
[2017-06-29 10:00] VITALS: BP 146/80
[2017-06-29] MEDS: levoTHYROXINE 100mcg tablet PO SCH (10:18)
[2017-06-29] MEDS: pantoprazole 40mg Tablet.DR PO SCH (10:18)
[2017-06-29] MEDS: folic acid/vitamin B complex w/vitamin C 0.8mg tablet PO SCH (10:18)
[2017-06-29] MEDS: bumetanide 1mg tablet PO SCH (10:18)
[2017-06-29] MEDS: allopurinol 100mg tablet PO SCH (10:18)
[2017-06-29] MEDS: lactobacillus rhamnosus 10,000 MMU CELLS/CAPSULE PO SCH (10:18)
[2017-06-29] MEDS: carvedilol 6.25mg tablet PO SCH (10:18)
[2017-06-29] MEDS ORDERED: ipratropium/albuterol 3ml nebule NEB SCH (21:50)
== END 2017-06-29 15:55 | DRG 177 ==
LOC: ER 13:38 → ED HOLD 16:39 → PCU 3S 19:21 → ORTHO 4S 06-25 23:35
PROVIDERS: ATTEND Internal Medicine Critical Care Medicine
PROC: 5A1D70Z Performance of Urinary Filtration, Intermittent, Less than 6 Hours Per Day (ICD-10-PCS; 2017-06-26)
PROC: 0DH63UZ Insertion of Feeding Device into Stomach, Percutaneous Approach (ICD-10-PCS; principal; 2017-06-28)
PROC: 5A1D70Z Performance of Urinary Filtration, Intermittent, Less than 6 Hours Per Day (ICD-10-PCS; 2017-06-28)
DX: J69.0 Pneumonitis due to inhalation of food and vomit (principal); N18.6 End stage renal disease; G93.41 Metabolic encephalopathy; I13.2 Hypertensive heart and chronic kidney disease with heart failure and with stage 5 chronic kidney disease, or end stage renal disease; R13.12 Dysphagia, oropharyngeal phase; E11.22 Type 2 diabetes mellitus with diabetic chronic kidney disease; I48.91 Unspecified atrial fibrillation; E03.9 Hypothyroidism, unspecified; I25.10 Atherosclerotic heart disease of native coronary artery without angina pectoris; I50.9 Heart failure, unspecified; K21.9 Gastro-esophageal reflux disease without esophagitis; R62.7 Adult failure to thrive; G89.29 Other chronic pain; M54.9 Dorsalgia, unspecified; I25.2 Old myocardial infarction; Z99.2 Dependence on renal dialysis; Z90.710 Acquired absence of both cervix and uterus; Z90.49 Acquired absence of other specified parts of digestive tract; Z95.5 Presence of coronary angioplasty implant and graft; Z95.0 Presence of cardiac pacemaker; Z88.8 Allergy status to other drugs, medicaments and biological substances; Z79.899 Other long term (current) drug therapy; Z79.4 Long term (current) use of insulin; Z79.01 Long term (current) use of anticoagulants
CPT/HCPCS: 36415; 70450; 71045; 74018; 80053; 80202; 80320; 80329; 82140; 82550; 82553; 82948; 83605; 83735; 84100; 84132; 84134; 84439; 84443; 84484; 85025; 85027; 85610; 85730; 87040; 87070; 92616; 93005; 94640; 94760; 96365; 97110; 97116; 97162; 97530; 99285; A4620; A6213; A6402; A6449; G0257; G0500; J0692; J0885; J1200; J1644; J1815; J2250; J2270; J2310; J2405; J3010; J3370; J3480; J3490; J7030; J7060

== ENCOUNTER 2019-12-10 12:30 | Day surgery (SDC) | payer MEDICARE, BC ==
[~2019-12-10 12:30] MED LIST changes: +ACET-2119 PO; +ACET5SOL2 GT; +ALLO100T PO; -ALLO100T15 PO; -ATOR20TA PO; +BUME2TAB7 PO; +CARV-49 PO; -CARV-50 PO; +CEFE1VIA11 IV; -CHOL200016 PO; +CIPR10DR RIGHT EAR; -CLON1PAT15 TP; +DOCU-28 PO; -DOXE10CA2 PO; -ENOX80SY7 SQ; -EPOE200015 SQ; -FURO40TA4 PO; -HYDR-4069 PO; -HYDR-565 PO; -INSU100I25 SQ; +IPRA4AER IH; -LEVO100T PO; +LEVO100T9 PO; +LIDO700A32 TOP; -METO10TA8 PO; -NIT5P TD; -NITR0.4T SL; +OMEP20CA15 PO; -OMEP40CA37 PO; +ONDA4TAB12 PO; +POLY17PO10 PO; -POTA-82 PO; +PRAV80TA3 PO; -PREVCR VG; +TRAM50TA2 PO; +VIT1TABL48 PO; -VITC500T PO
[2019-12-10] MEDS ORDERED: LIDOcaine 2% 5ml jelly ONE (14:49)
== END 2019-12-10 15:15 | disposition home or self-care (01) ==
LOC: WOUND CARE 12:30
PROVIDERS: ATTEND Nurse Practitioner
DX: S81.811A Laceration without foreign body, right lower leg, initial encounter (principal); E11.22 Type 2 diabetes mellitus with diabetic chronic kidney disease; I13.0 Hypertensive heart and chronic kidney disease with heart failure and stage 1 through stage 4 chronic kidney disease, or unspecified chronic kidney disease; N18.6 End stage renal disease; I50.9 Heart failure, unspecified; I25.10 Atherosclerotic heart disease of native coronary artery without angina pectoris; I49.9 Cardiac arrhythmia, unspecified; K21.9 Gastro-esophageal reflux disease without esophagitis; E66.9 Obesity, unspecified; G89.29 Other chronic pain; I25.2 Old myocardial infarction; I48.91 Unspecified atrial fibrillation; Z79.899 Other long term (current) drug therapy; Z90.710 Acquired absence of both cervix and uterus; Z90.49 Acquired absence of other specified parts of digestive tract; Z98.61 Coronary angioplasty status; Z79.2 Long term (current) use of antibiotics; Z95.1 Presence of aortocoronary bypass graft; Z68.27 Body mass index [BMI] 27.0-27.9, adult; W22.8XXA Striking against or struck by other objects, initial encounter; Y93.89 Activity, other specified; Y92.238 Other place in hospital as the place of occurrence of the external cause; Y99.8 Other external cause status
CPT/HCPCS: 97597

== ENCOUNTER 2019-12-16 12:30 | Day surgery (SDC) | payer MEDICARE, BC ==
[2019-12-16] MEDS ORDERED: LIDOcaine 2% 5ml jelly ONE (12:49)
== END 2019-12-16 13:41 | disposition home or self-care (01) ==
LOC: WOUND CARE 12:30
PROVIDERS: ATTEND Nurse Practitioner
DX: S81.811D Laceration without foreign body, right lower leg, subsequent encounter (principal); E11.22 Type 2 diabetes mellitus with diabetic chronic kidney disease; I13.0 Hypertensive heart and chronic kidney disease with heart failure and stage 1 through stage 4 chronic kidney disease, or unspecified chronic kidney disease; N18.6 End stage renal disease; I50.9 Heart failure, unspecified; I25.10 Atherosclerotic heart disease of native coronary artery without angina pectoris; I49.9 Cardiac arrhythmia, unspecified; K21.9 Gastro-esophageal reflux disease without esophagitis; E66.9 Obesity, unspecified; G89.29 Other chronic pain; I25.2 Old myocardial infarction; I48.91 Unspecified atrial fibrillation; Z79.899 Other long term (current) drug therapy; Z90.710 Acquired absence of both cervix and uterus; Z90.49 Acquired absence of other specified parts of digestive tract; Z98.61 Coronary angioplasty status; Z79.2 Long term (current) use of antibiotics; Z95.1 Presence of aortocoronary bypass graft; Z68.27 Body mass index [BMI] 27.0-27.9, adult; Z87.891 Personal history of nicotine dependence; Z99.2 Dependence on renal dialysis; W22.8XXD Striking against or struck by other objects, subsequent encounter
CPT/HCPCS: 73590; 73630; 93971; 97597